=== PATIENT | female | born 1995 | race African-American/Black ===

== ENCOUNTER 2016-07-13 01:58 | Inpatient (IN) | payer SELFPAY ==
[2016-07-13 01:58] VITALS: O2SAT 100
[2016-07-13 02:00] VITALS: O2SAT 100
[2016-07-13] MEDS ORDERED: MORPHINE SULFATE 8 MG/ML INJ ONE (02:05)
[2016-07-13] MEDS ORDERED: DIPHTH/TETANUS/ACEL PERTUSSIS (BOOSTER) 0.5 ML VIAL/PFS IM ONE ×2 (02:05→02:26)
[2016-07-13] MEDS ORDERED: ceFAZolin 2 GM PREMIX 50 ML ONE (02:05)
[2016-07-13] MEDS ORDERED: ONDANSETRON HCL 4 MG/2 ML VIAL ONE (02:05)
[2016-07-13] MEDS ORDERED: IOHEXOL 350 MG/ML 10 ML VIAL (for RAD DIAG) IV ONE (02:21)
[2016-07-13 02:26] LABS: I-STAT SODIUM 143 MMOL/L (138-146)
[2016-07-13 02:27] LABS: I-STAT POTASSIUM 3.4 MMOL/L (3.5-4.9)
[2016-07-13] MEDS ORDERED: ceFAZolin 2 GM PREMIX 50 ML IV STA (02:27)
[2016-07-13 02:28] LABS: AUTOMATED NEUTROPHIL # 2.5 TH/MM3 (1.8-7.7); BASOPHIL % 0.8 % (0.0-2.0); EOSINOPHIL # 0.2 TH/MM3 (0-0.4); EOSINOPHIL % 2.9 % (0.0-4.0); HEMATOCRIT 38.7 % (35.0-46.0); LYMPH % 47.6 % (9.0-44.0); LYMPHOCYTE # 2.7 TH/MM3 (1.0-4.8); MEAN CORPUSCULAR HGB CONC 33.7 % (32.0-36.0); MONO % 4.7 % (0.0-8.0); PLATELET COUNT 288 TH/MM3 (150-450); RED BLOOD COUNT 4.66 MIL/MM3 (4.00-5.30); RED CELL DISTRIBUTION WIDTH 12.8 % (11.6-17.2); WHITE BLOOD COUNT 5.7 TH/MM3 (4.0-11.0)
[2016-07-13 02:30] LABS: HEMO FLAGS DIFF FINAL
[2016-07-13] MEDS ORDERED: ONDANSETRON HCL 4 MG/2 ML VIAL IV ONE (02:30)
[2016-07-13] MEDS ORDERED: MORPHINE SULFATE 4 MG/ML INJ IV PUSH ONE (02:30)
[2016-07-13] MEDS ORDERED: SODIUM CHLOR 0.9% 1000 ML INJ 1,000 ML IV ONE (02:30)
[2016-07-13 02:38] LABS: APTT (PATIENT) 22.8 SEC (24.3-30.1); PROTHROMBIN TIME - PATIENT 10.7 SEC (9.8-11.6)
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
[2016-07-13] MEDS ORDERED: Post-op Orders (for Pharmacy) MISC XX ONE ×2 (02:45→03:00)
[2016-07-13] MEDS ORDERED: ONDANSETRON HCL 4 MG/2 ML VIAL IV PRN (02:45)
[2016-07-13] MEDS ORDERED: NALOXONE HCL 0.4 MG/ML AMP IV PRN ×2 (02:45→03:00)
[2016-07-13] MEDS ORDERED: SODIUM CHLORIDE 0.9% FLUSH 10 ML FLUSH IV FLUSH PRN ×2 (02:45→03:00)
[2016-07-13] MEDS ORDERED: oxyCODONE/ACETAMINOPHEN 5 MG/325 MG TAB PO PRN (02:45)
[2016-07-13 02:46] LABS: BETA HCG QUANT LESS THAN 1 MIU/ML (0-5)
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
[2016-07-13] MEDS ORDERED: PANTOPRAZOLE SOD 40 MG DELAYED RELEASE TAB PO SCH (04:00)
[2016-07-13] MEDS: SODIUM CHLOR 0.9% 1000 ML INJ 1,000 ML IV SCH ×2 (04:43→07:44)
[2016-07-13] MEDS: MORPHINE SULFATE 4 MG/ML INJ IV PRN ×2 (05:08→09:24)
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
[2016-07-13 05:36] VITALS: BP 140/81; PULSE 87; RESP 18; TEMP 99.1
[2016-07-13 07:41] VITALS: BP 111/61; PULSE 78; RESP 18; TEMP 98; O2SAT 97
[2016-07-13] MEDS ORDERED: SODIUM CHLORIDE 0.9% FLUSH 10 ML FLUSH IV FLUSH SCH ×2 (09:00)
[2016-07-13 12:29] VITALS: BP 117/58; PULSE 68; RESP 18; TEMP 98.4; O2SAT 98
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
[2016-08-04] MEDS ORDERED: OXYC1TAB63 PO (11:09)
== END 2016-07-13 15:59 | disposition home or self-care (01) | DRG 605 ==
LOC: NEPI 01:58 → NEDA 02:32 → OBSVTOIN 02:32 → EDBD 02:32 → NEPHCDU 05:01
PROVIDERS: ADMIT Surgery; ATTEND Surgery
DX: S31.813A Puncture wound without foreign body of right buttock, initial encounter (principal); W34.00XA Accidental discharge from unspecified firearms or gun, initial encounter; Y92.39 Other specified sports and athletic area as the place of occurrence of the external cause
CPT/HCPCS: 71010; 72170; 74177; 82435; 82565; 82947; 84132; 84295; 84520; 84702; 85025; 85610; 85730; 86850; 86900; 86901; 90471; 90715; 94150; 96374; 96375; J0690; J2270; J2405; J7030; Q9967